=== PATIENT | male | born 1985 | race Caucasian/White ===

== ENCOUNTER 2016-07-08 18:55 | Emergency (ER) | payer OTHER ==
[2016-07-08 20:18] LABS: BILIRUBIN NEGATIVE (NEGATIVE); BLOOD NEGATIVE Ery/uL (NEGATIVE); CLARITY CLEAR (CLEAR); COLOR YELLOW (YELLOW); GLUCOSE (U) NORMAL (NORMAL); KETONE (U) NEGATIVE (NEGATIVE); LEUKOCYTES NEGATIVE Leu/uL (NEGATIVE); NITRITE NEGATIVE (NEGATIVE); PROTEIN NEGATIVE (NEGATIVE); SPECIFIC GRAVITY 1.025 (1.001-1.030)
[2016-07-08 20:18] LABS: BASOPHIL 1.1 % (0-2); EOSINOPHIL 3.2 % (0-5); HGB 14.5 g/dl (13.2-18.0); LYMPHOCYTE 36.4 % (15-48); MCHC 34.5 g/dL (32.0-36.0); MCV 89.7 fL (78.0-100.0); MONOCYTE 7.9 % (0-12); MPV 10.2 fL (6.0-9.5); NEUTROPHIL 51.4 % (41-80); PLT 241 K/uL (150-400); RBC 4.68 M/uL (4.70-6.00); RDW 13.1 % (11.5-14.0); WBC 7.6 K/uL (4.0-10.5)
[2016-07-08 20:38] LABS: ALBUMIN 4.5 g/dL (3.5-5.0); BILIRUBIN - TOTAL 0.2 mg/dL (0.1-1.0); CREATININE 1.3 mg/dL (0.7-1.2); GLOBULIN (CALCULATION) 2.5 g/dL (2.2-4.2); POTASSIUM 4.5 mmol/L (3.5-5.1)
== END 2016-07-08 23:05 | disposition home or self-care (01) ==
LOC: FER 18:55
PROVIDERS: Emergency Medicine Emergency Medical Services
DX: K27.9 Peptic ulcer, site unspecified, unspecified as acute or chronic, without hemorrhage or perforation (principal); B96.81 Helicobacter pylori [H. pylori] as the cause of diseases classified elsewhere; R10.814 Left lower quadrant abdominal tenderness; F17.210 Nicotine dependence, cigarettes, uncomplicated; Z88.0 Allergy status to penicillin
CPT/HCPCS: 36415; 74022; 80053; 81003; 82150; 83690; 85025; 87339; 99284